=== PATIENT | male | born 2000 | race Two or more races ===

== ENCOUNTER 2019-04-27 05:52 | Inpatient (IN) | payer OTHER ==
[~2019-04-27] VITALS: Ht 172.7 cm; Wt 74.4 kg
[2019-04-27] MEDS ORDERED: MORPHINE SULFATE 4 MG/ML SYR/VIAL IV ONE (06:30)
[2019-04-27] MEDS ORDERED: ONDANSETRON HCL 4 MG/2 ML VIAL IV ONE (06:30)
[2019-04-27] MEDS ORDERED: SODIUM CHLORIDE 0.9% 1,000 ML IV ONE (06:30)
[2019-04-27] MEDS ORDERED: SODIUM CHLORIDE 0.9% 1,000 ML IVB ONE (06:37)
[2019-04-27] MEDS ORDERED: KETOROLAC TROMETH 15 mg/ml 1ML VL IV ONE ×2 (06:45→11:45)
[2019-04-27] MEDS ORDERED: METOCLOPRAMIDE HCL 5MG/ml INJ 2ml VIAL IV ONE (06:45)
[2019-04-27 06:53] LABS: Basophils # (auto) 0 uL; Basophils % (auto) 0.3 % (0.0-2.0); Eosinophils # (auto) 0 uL; Eosinophils % (auto) 0.2 % (0.0-7.0); Hematocrit 46.8 % (41.0-53.0); Hemoglobin 16.4 g/dL (13.5-17.5); Lymphocytes % (auto) 6.8 % (10.0-50.0); Mean Corpuscular Hemoglobin 32.1 pg (28.0-32.0); Mean Corpuscular Volume 91.8 fL (80.0-100.0); Monocytes # (auto) 0.8 uL; Monocytes % (auto) 5.4 % (0.0-12.0); Neutrophils # (auto) 13.4 uL; Neutrophils % (auto) 87.3 % (37.0-80.0); Platelet Count (auto) 247 10^3/uL (140-450); Red Cell Distribution Width 12.9 % (11.8-14.3); White Blood Cell 15.4 10^3/uL (4.4-10.8)
[2019-04-27 07:17] LABS: Albumin 4.8 g/dL (3.4-5.0); Calcium 9.7 mg/dL (8.5-10.1); Potassium 4.1 mmol/L (3.5-5.1)
[2019-04-27 07:20] LABS: Alcohol, Urine < 3.0 mg/dL (0-5); Amphetamine Screen, Urine NEGATIVE (NEGATIVE); Barbiturate Scree,Urine NEGATIVE (NEGATIVE); Benzodiazephine Screen, Urine NEGATIVE (NEGATIVE); Bilirubin, Total 0.5 mg/dL (0.2-1.0); Cannabinoid Screen, Urine NEGATIVE (NEGATIVE); Cocaine Screen, Urine NEGATIVE (NEGATIVE); Opiate Scree,Urine NEGATIVE (NEGATIVE); Phencyclidine Screen, Urine NEGATIVE (NEGATIVE); Total Protein 8.4 g/dL (6.4-8.2)
[2019-04-27 09:28] LABS: Urine WBC None Seen /hpf (0 - 3)
[2019-04-27 10:56] LABS: Urine Bacteria NONE SEEN /hpf (None Seen); Urine Blood TRACE /uL (Negative); Urine Mucus FEW (None Seen); Urine Specific Gravity 1.025 (1.001-1.035)
[2019-04-27] MEDS ORDERED: ONDANSETRON HCL 4 MG/2 ML VIAL IV PRN (13:00)
[2019-04-27] MEDS ORDERED: MORPHINE SULF INJ 2 MG/ML SYRINGE 1ML IV PRN (13:00)
[2019-04-27] MEDS ORDERED: ACETAMINOPHEN 500 MG TAB PO PRN (13:00)
[2019-04-27] MEDS: TAMSULOSIN HYDROCHLORIDE 0.4 MG CAP PO SCH ×2 (13:23→18:25)
[2019-04-27] MEDS: SODIUM CHLORIDE 0.9% 1,000 ML IV SCH (13:28)
--- NOTE | 2019-04-27 16:00 | NUR ---
[facility] admit from ER [facility] [facility] admitted to [facility] room 240A after SBAR received. AAOX4, ambulatory, breathing even nonlabored, S1, S2, lungs sound clear ton auscultation. Denied pain at this time. IV 20G to left AC running NS @ 120ml/hr. Patient oriented to William Keyes RN primary RN, unit, room, bed, and unit policies regarding patient care and visiting hours. Patient weighed by bedscale and encouraged to call if they need something. All questions and concerns addressed, patient verbalized understanding. Bed locked in the lowest position, call light within easy reach, will continue care.
[2019-04-27 16:20] VITALS: BP 121/97
[2019-04-27 16:42] VITALS: BP 121/67
[2019-04-27] MEDS: HYDROcodone-ACET 5/325MG TAB PO PRN (18:28)
--- NOTE | 2019-04-27 19:34 | NUR ---
Opening Shift Note Received report and assumed care of patient. Patient is awake and alert. No signs or symptoms of distress noted, patient currently denies pain. Instructed patient on plan of care and to call for assistance as needed. Will continue to monitor.
[2019-04-27 22:00] VITALS: BP 124/76
[2019-04-28] MEDS: SODIUM CHLORIDE 0.9% 1,000 ML IV SCH ×4 (00:19→20:32)
[2019-04-28] MEDS: HYDROcodone-ACET 5/325MG TAB PO PRN ×2 (04:06→19:12)
[2019-04-28 05:00] VITALS: BP 117/60
[2019-04-28 06:12] LABS: Basophils # (auto) 0 uL; Basophils % (auto) 0.3 % (0.0-2.0); Eosinophils # (auto) 0.1 uL; Eosinophils % (auto) 0.8 % (0.0-7.0); Hematocrit 38.5 % (41.0-53.0); Hemoglobin 13.6 g/dL (13.5-17.5); Lymphocytes # (auto) 1.6 uL; Lymphocytes % (auto) 20.7 % (10.0-50.0); Mean Corpuscular Hemoglobin 32.4 pg (28.0-32.0); Mean Corpuscular Hgb Conc. 35.4 g/dL (32.0-36.0); Mean Corpuscular Volume 91.6 fL (80.0-100.0); Monocytes % (auto) 13.2 % (0.0-12.0); Neutrophils # (auto) 4.9 uL; Platelet Count (auto) 167 10^3/uL (140-450); Red Cell Distribution Width 13.4 % (11.8-14.3); White Blood Cell 7.5 10^3/uL (4.4-10.8)
[2019-04-28 06:41] LABS: Potassium 3.8 mmol/L (3.5-5.1)
[2019-04-28 07:02] LABS: BUN/Creatinine Ratio 9.9; Calcium 8.5 mg/dL (8.5-10.1)
--- NOTE | 2019-04-28 08:00 | NUR ---
ASSESSMENT NOTE PT IS ALERT ORIENTED X4, RESTING IN BED COMFORTABLY, NO DISTRESS NOTED, AMBULATE NEEDED, ABLE TO VERBALIS HIS DEMANDS, SELF REPOSITION NEEDED, PAIN 06/23, REFUSED PAIN MEDS AT THIS TIME, CALL LIGHT WITHIN REACH
[2019-04-28] MEDS: cefTRIAXone 1GM/50ML D5W 50 ML IV SCH (09:07)
[2019-04-28] MEDS: FAMOTIDINE 20 MG TAB PO SCH (09:07)
--- NOTE | 2019-04-28 10:51 | NUR ---
Opening Shift Note Assumed care of patient, he is awake and alert. No S/S of distress/SOB or pain reported. Instructed on POC and to call for assist. Bed is in the lowest, locked position and call light is within reach. Will continue to monitor for changes Q1hr and PRN. Signed: 04/28/19 at 1054 by SN CLAUDIA <Co-Signature Required> Co-Signed: 04/28/19 at 1054 by Margaret Moyer RN
--- NOTE | 2019-04-28 12:30 | NUR ---
DR TEIXEIRA AT BED SIDE FOLLOWING UP ON PT, MADE AWARE THAT PATIENT'S HAS HIGH BLOOD PRESSURE, SAID ITS OKAY
[2019-04-28 13:00] VITALS: BP 138/94
--- NOTE | 2019-04-28 13:00 | NUR ---
UROLOGY CONSULT CARLOTTA CHOW AT BED SIDE FOLLOWING UP ON PT WITH NEW ORDERS
[2019-04-28] MEDS ORDERED: MANNITOL FTV 25% 12.5 GM/50 ML 50 ML IV ONE (13:15)
[2019-04-28 17:00] VITALS: BP 132/73
[2019-04-28] MEDS: TAMSULOSIN HYDROCHLORIDE 0.4 MG CAP PO SCH (17:29)
--- NOTE | 2019-04-28 18:27 | NUR ---
PT CONTINUE STABLE, CONTINUE STRAINING ALL URINE PER DR TEIXEIRA'S ORDERS
--- NOTE | 2019-04-28 19:29 | NUR ---
Opening Shift Note Received report and assumed care of patient. Patient is awake and alert. No signs or symptoms of distress noted. Instructed patient on plan of care and to call for assistance as needed. Will continue to monitor.
[2019-04-28 22:00] VITALS: BP 126/56
[2019-04-29] MEDS: SODIUM CHLORIDE 0.9% 1,000 ML IV SCH ×2 (04:47→09:43)
[2019-04-29 05:09] VITALS: BP 112/56
--- NOTE | 2019-04-29 07:45 | NUR ---
Opening Shift Note Assumed care of patient, sleeping comfortably in bed and was easily awakened. No S/S of distress/SOB or pain. Instructed on POC and to call for assist PRN, will continue to monitor for changes Q1hr and PRN.
[2019-04-29] MEDS: cefTRIAXone 1GM/50ML D5W 50 ML IV SCH (08:31)
[2019-04-29 09:00] VITALS: BP 122/65
[2019-04-29] MEDS: FAMOTIDINE 20 MG TAB PO SCH (09:40)
--- NOTE | 2019-04-29 10:38 | NUR ---
Dr. Liseth Love was in to see patient and MD left prescriptions and discharge order. Patient is aware of same.
--- NOTE | 2019-04-29 12:30 | NUR ---
CARL[employer] [employer] SAW PATIENT AND DISCUSS WITH PATIENT DISCHARGE INSTRUCTIONS AND LEFT NO NEW ORDERS.
--- NOTE | 2019-04-29 12:35 | NUR ---
Discharge instructions given as ordered. Encourage to follow up with PMD as instructed. All questions and concerns addressed. Patient verbalized understanding. Medication reconciliation form completed and copy given to patient. IV removed with catheter intact, pressure dressing applied. Patient discharged to home ambulatory with all personal belongings, accompanied by his father via private vehicle. No distress noted at time of departure.
== END 2019-04-29 12:37 | disposition home or self-care (01) | DRG 694 ==
LOC: ER 05:52 → TELE 05:53 → TELE-EAST 16:21 → EAST 04-28 05:13
PROVIDERS: ADMIT Nurse Practitioner Acute Care; ATTEND Family Medicine
DX: N13.2 Hydronephrosis with renal and ureteral calculous obstruction (principal); N50.812 Left testicular pain; Z87.442 Personal history of urinary calculi; D72.829 Elevated white blood cell count, unspecified
CPT/HCPCS: 36415; 74176; 76870; 80048; 80053; 80307; 81001; 85025; 87086; 96361; 96374; 96375; G0378; J0696; J2405